=== PATIENT | male | born 1990 | race Two or more races ===

== ENCOUNTER 2023-09-11 07:40 | Emergency (ER) | payer MEDICAID, OTHER ==
[~2023-09-11] VITALS: Ht 172.7 cm; Wt 105.5 kg
[2023-09-11] MEDS: HYDROcodone/acetaminophen 10/325mg tab PO ONE (09:16)
[2023-09-11] MEDS: neomy sulf/polymyx B sulf/HC 10ml otic suspension RIGHT EAR ONE (09:16)
[2023-09-11 09:24] VITALS: BP 134/82; PULSE 96; RESP 16; TEMP 98.8; O2SAT 96
[2023-09-11] MEDS ORDERED: ACET-1008 PO ×2 (22:10→22:11)
[2023-09-11] MEDS ORDERED: IBUP-1984 PO (22:10)
== END 2023-09-11 09:25 | disposition home or self-care (01) ==
LOC: ER 07:40
DX: H60.91 Unspecified otitis externa, right ear (principal); F17.200 Nicotine dependence, unspecified, uncomplicated
CPT/HCPCS: 99283

== ENCOUNTER 2023-09-11 21:24 | Emergency (ER) | payer MEDICAID, OTHER ==
[~2023-09-11] VITALS: Ht 172.7 cm; Wt 105.0 kg
[2023-09-11] MEDS: acetaminophen 325mg tablet PO ONE (21:35)
[2023-09-11] MEDS ORDERED: ketorolac trometh. 30mg/ml inj. IM ONE (21:55)
[2023-09-11] MEDS ORDERED: IBUP-1984 PO (22:10)
[2023-09-11] MEDS ORDERED: ACET-1008 PO ×2 (22:10→22:11)
[2023-09-11] MEDS: ketorolac tromethamine 15mg/ml inj. IM ONE (22:11)
[2023-09-11 22:40] VITALS: BP 150/78; PULSE 108; RESP 18; TEMP 99.9; O2SAT 99
== END 2023-09-11 22:42 | disposition home or self-care (01) ==
LOC: ER 21:24
DX: H60.91 Unspecified otitis externa, right ear (principal); R51.9 Headache, unspecified; R50.9 Fever, unspecified
CPT/HCPCS: 96372; 99283; J1885

== ENCOUNTER 2023-09-13 19:28 | Emergency (ER) | payer OTHER ==
[~2023-09-13] VITALS: Ht 175.3 cm; Wt 105.0 kg
[~2023-09-13 19:28] MED LIST: ACET-1008 PO; IBUP-1984 PO
[2023-09-13 19:48] VITALS: PULSE 76; RESP 14; O2SAT 98
[2023-09-13] MEDS ORDERED: AMOX-117 PO (20:07)
[2023-09-13] MEDS ORDERED: CIPR7.5D7 EACH EAR (20:07)
[2023-09-13 20:35] VITALS: TEMP 98.9
[2023-09-13] MEDS: ketorolac tromethamine 15mg/ml inj. IM ONE (20:35)
== END 2023-09-13 20:40 | disposition home or self-care (01) ==
LOC: ER 19:29
DX: H60.93 Unspecified otitis externa, bilateral (principal); Z79.1 Long term (current) use of non-steroidal anti-inflammatories (NSAID)
CPT/HCPCS: 96372; 99283; J1885